=== PATIENT | male | born 1995 | race Hispanic/Latino ===

== ENCOUNTER 2017-10-11 20:43 | Inpatient (IN) | payer BC ==
[2017-10-11 21:35] LABS: Absolute Lymphocytes (CBC) 1.7 K/uL (0.7-4.9); Absolute Monocytes 1.3 K/uL (0.1-1.3); Absolute Neutrophil 11.9 K/uL (1.8-8.0); Basophils % 0.3 % (0-1.3); Eosinophils % 0.7 % (0-4.4); Hematocrit 40.8 % (39.6-49.0); Lymphocytes % 11.3 % (15.3-44.8); MCV 84.9 fL (80-100); MPV 8.7 fL (7.6-11.3); Monocytes % 8.5 % (3.3-12.3)
[2017-10-11 21:42] LABS: Urine Blood TRACE (NEG); Urine Glucose NEGATIVE (NEG); Urine Protein NEGATIVE (NEG); Urine Specific Gravity 1.015 (1.005-1.030); Urine pH 6.5 (5.0-7.0)
[2017-10-11] MEDS ORDERED: FENTANYL CITR 100 MCG/2 ML ONE (21:52)
[2017-10-11] MEDS ORDERED: ONDANSETRON 4 MG/2 ML VIAL ONE (21:52)
[2017-10-11 22:02] LABS: ALT/SGPT 17 U/L (12-78); AST/SGOT 17 U/L (15-37); Albumin 3.9 g/dL (3.4-5.0); Alkaline Phosphatase 63 U/L (45-117); BUN Blood Urea Nitrogen 9 mg/dL (7-18); Bicarbonate 27 mmol/L (21-32); Bilirubin Direct 0.2 mg/dL (0-0.2); Glucose Level 103 mg/dL (74-106); Lipase 121 U/L (73-393); Potassium 3.8 mmol/L (3.5-5.1); Protein, Total 8.2 g/dL (6.4-8.2); Sodium Level 137 mmol/L (136-145)
[2017-10-11] MEDS ORDERED: METRONIDAZOLE 500mg IVPB 500 MG/100 ML BAG IV ONE (22:38)
[2017-10-11] MEDS ORDERED: CIPROFLOXACIN 400mg IV 400 MG/200 ML BAG IV ONE (22:38)
--- NOTE | 2017-10-11 23:19 | EDPHYS ---
Physician Documentation [facility] Name: Bruno Mosqueda III Age: 22 yrs Sex: Male : 1995 Arrival Date: 10/11/2017 Time: 20:44 Bed 28 Private MD: ED Physician Elias Alaniz HPI: 10/11 21:42 This 22 yrs old Male presents to ER via Ambulatory with complaints of jr8 Abdominal Pain. 21:42 The patient presents with abdominal pain in the lower abdomen, in the left lower jr8 quadrant. Onset: The symptoms/episode began/occurred acutely, this morning, today. The symptoms do not radiate. Associated signs and symptoms: none. The symptoms are described as sharp. Modifying factors: The symptoms are alleviated by nothing, the symptoms are aggravated by movement. Severity of pain: At its worst the pain was moderate in the emergency department the pain is unchanged. The patient has not experienced similar symptoms in the past. The patient has not recently seen a physician. Historical: - Allergies: 20:57 No Known Allergies; aj - Home Meds: 20:57 omeprazole 40 mg Oral cpDR 1 cap once daily [Active]; aj - PMHx: 20:57 GERD; aj - PSHx: 20:57 None; aj - Immunization history:: Adult Immunizations up to date. - Social history:: Smoking status: Patient/guardian denies using tobacco. - Ebola Screening: : Patient negative for fever greater than or equal to 101.5 degrees Fahrenheit, and additional compatible Ebola Virus Disease symptoms Patient denies exposure to infectious person Patient denies travel to an Ebola-affected area in the 21 days before illness onset No symptoms or risks identified at this time. ROS: 21:42 Eyes: Negative for injury, pain, redness, and discharge, ENT: Negative for injury, jr8 pain, and discharge, Neck: Negative for injury, pain, and swelling, Cardiovascular: Negative for chest pain, palpitations, and edema, Respiratory: Negative for shortness of breath, cough, wheezing, and pleuritic chest pain, Back: Negative for injury and pain, MS/Extremity: Negative for injury and deformity, Skin: Negative for injury, rash, and discoloration, Neuro: Negative for headache, weakness, numbness, tingling, and seizure. 21:42 Abdomen/GI: Positive for abdominal pain, Negative for nausea, vomiting, and diarrhea, abdominal distension, anorexia, dysphagia, hematemesis, black/tarry stool, rectal pain, rectal bleeding, bowel incontinence, flatulence. Exam: 21:42 Eyes: Pupils equal round and reactive to light, extra-ocular motions intact. Lids and jr8 lashes normal. Conjunctiva and sclera are non-icteric and not injected. Cornea within normal limits. Periorbital areas with no swelling, redness, or edema. ENT: Nares patent. No nasal discharge, no septal abnormalities noted. Tympanic membranes are normal and external auditory canals are clear. Oropharynx with no redness, swelling, or masses, exudates, or evidence of obstruction, uvula midline. Mucous membranes moist. Neck: Trachea midline, no thyromegaly or masses palpated, and no cervical lymphadenopathy. Supple, full range of motion without nuchal rigidity, or vertebral point tenderness. No Meningismus. Cardiovascular: Regular rate and rhythm with a normal S1 and S2. No gallops, murmurs, or rubs. Normal PMI, no JVD. No pulse deficits. Respiratory: Lungs have equal breath sounds bilaterally, clear to auscultation and percussion. No rales, rhonchi or wheezes noted. No increased work of breathing, no retractions or nasal flaring. Back: No spinal tenderness. No costovertebral tenderness. Full range of motion. Skin: Warm, dry with normal turgor. Normal color with no rashes, no lesions, and no evidence of cellulitis. MS/ Extremity: Pulses equal, no cyanosis. Neurovascular intact. Full, normal range of motion. Neuro: Awake and alert, GCS 15, oriented to person, place, time, and situation. Cranial nerves II-XII grossly intact. Motor strength 5/5 in all extremities. Sensory grossly intact. Cerebellar exam normal. Normal gait. 21:42 Abdomen/GI: Inspection: abdomen appears normal, Bowel sounds: active, all quadrants, Palpation: soft, in all quadrants, moderate abdominal tenderness, in the left lower quadrant, mass, is not appreciated, rebound tenderness, is not appreciated, voluntary guarding, is not appreciated, involuntary guarding, is not appreciated, no appreciated organomegaly, Indicators: McBurney's point is not tender, Coronado's sign is negative, Rovsing's sign is negative, Liver: no appreciated palpable abnormalities, tenderness, is not appreciated. Vital Signs: 20:57 BP 146 / 95; Pulse 104; Resp 19; Temp 99.4; Pulse Ox 100% on R/A; Weight 89.81 kg; aj Height 5 ft. 7 in. (170.18 cm); 21:45 BP 159 / 100; Pulse 93; Resp 18; Pulse Ox 100% on R/A; Pain 10/10; mg2 22:54 BP 131 / 78; Pulse 85; Resp 18; Pulse Ox 100% on R/A; Pain 4/10; mg2 23:16 BP 136 / 80; Pulse 93; Resp 18; Pulse Ox 100% on R/A; Pain 2/10; mg2 10/12 00:18 BP 141 / 85; Pulse 90; Resp 18; Pulse Ox 100% on R/A; Pain 0/10; mg2 10/11 20:57 Body Mass Index 31.01 (89.81 kg, 170.18 cm) aj MDM: 10/11 21:09 Patient medically screened. 8 23:15 Data reviewed: vital signs, nurses notes, lab test result(s), radiologic studies, CT jr8 scan, and as a result, I will admit patient. Data interpreted: Pulse oximetry: on room air is 100 %. Interpretation: normal. Counseling: I had a detailed discussion with the patient and/or guardian regarding: the historical points, exam findings, and any diagnostic results supporting the discharge/admit diagnosis, lab results, radiology results, the need for further work-up and treatment in the hospital. Physician consultation: Donn Burroughs MD was called at 23:16, was contacted at 23:16, regarding admission, to the medical/surgical unit. consult, patient's condition, and will see patient. ED course: Dr. Maravilla admitting patient . 10/11 21:09 Order name: Basic Metabolic Panel; Complete Time: 22:13 10/11 21:09 Order name: CBC with Diff; Complete Time: 21:37 8 10/11 21:09 Order name: Creatinine for Radiology; Complete Time: 22:01 10/11 21:09 Order name: Hepatic Function; Complete Time: 22:13 8 10/11 21:09 Order name: Lipase; Complete Time: 22:13 [facility] 10/11 21:34 Order name: Urine Dipstick--Ancillary (enter results); Complete Time: 21:44 rg2 10/11 21:38 Order name: CT Abd/Pelvis - W/Contrast 8 10/11 21:09 Order name: IV Saline Lock; Complete Time: 21:43 8 10/11 21:09 Order name: Labs collected and sent; Complete Time: 21:43 8 10/11 21:09 Order name: Urine Dipstick-Ancillary (obtain specimen); Complete Time: 21:43 10/11 23:20 Order name: CONS Physician Consult EDMS Administered Medications: 21:50 Drug: Zofran 4 mg Route: IVP; Site: left antecubital; mg2 23:15 Follow up: Response: No adverse reaction; Marked relief of symptoms mg2 21:51 Drug: fentaNYL (PF) 50 mcg Route: IVP; Site: left antecubital; mg2 23:15 Follow up: Response: No adverse reaction; Marked relief of symptoms mg2 22:39 Drug: Flagyl 500 mg Volume: 100 ml; Route: IVPB; Rate: 200 ml/hr; Infused Over: 30 mg2 mins; Site: left antecubital; 10/12 00:38 Follow up: Response: No adverse reaction; IV Status: Completed infusion mg2 10/11 23:15 Drug: Cipro 400 mg Volume: 200 ml; Route: IVPB; Infused Over: 60 mins; Site: left [facility] antecubital; 10/12 00:38 Follow up: Response: No adverse reaction; IV Status: Completed infusion mg2 10/11 23:15 Drug: NS 0.9% 1000 ml Route: IV; Rate: 1000 ml; Site: left antecubital; mg2 10/12 00:39 Follow up: Response: No adverse reaction; IV Status: Infusion continued upon admission mg2 10/11 23:21 CANCELLED (Physician Discretion): Dilaudid 0.5 mg IVP once jr8 23:27 Drug: fentaNYL (PF) 50 mcg Route: IVP; Site: left antecubital; mg2 10/12 00:19 Follow up: Response: No adverse reaction; Marked relief of symptoms mg2 00:38 Not Given (patient admitted and bag brought to the floor. ): NS 0.9% 1000 ml IV at 100 mg2 ml/hr continuous Disposition: 00:46 Co-signature as Attending Physician, Elias Alaniz MD. rn Disposition: 10/11/17 23:18 Hospitalization ordered by Kayley Miller for Inpatient Admission. Preliminary diagnosis is Diverticulitis with perforation without abscesss or bleeding . - Bed requested for Telemetry/MedSurg (Inpatient). - Status is Inpatient Admission. mg2 - Condition is Stable. - Problem is new. - Symptoms have improved. UTI on Admission? No Signatures: Dispatcher [employer] EDMS Sharifa Chirinos RN RN kl Myers, Amanda, RN RN aj Nieto, Roman, MD MD rn Roszak, Josh, PA PA jr8 John Goode RN RN mg2 Corrections: (The following items were deleted from the chart) 10/11 23:21 23:20 Dilaudid 0.5 mg IVP once ordered. jr8 jr8 10/12 00:06 10/11 23:18 Hospitalization Ordered by Kayley Miller MD for Inpatient Admission. kl Preliminary diagnosis is Diverticulitis with perforation without abscesss or bleeding . Bed requested for Telemetry/MedSurg (Inpatient). Status is Inpatient Admission. Condition is Stable. Problem is new. Symptoms have improved. UTI on Admission? No. jr8 10/12 00:08 00:06 10/11/2017 23:18 Hospitalization Ordered by Kayley Miller MD for Inpatient kl Admission. Preliminary diagnosis is Diverticulitis with perforation without abscesss or bleeding . Bed requested for Telemetry/MedSurg (Inpatient). Status is Inpatient Admission. Condition is Stable. Problem is new. Symptoms have improved. UTI on Admission? No. kl 00:40 00:08 10/11/2017 23:18 Hospitalization Ordered by Kayley Miller MD for Inpatient mg2 Admission. Preliminary diagnosis is Diverticulitis with perforation without abscesss or bleeding . Bed requested for Telemetry/MedSurg (Inpatient). Status is Inpatient Admission. Condition is Stable. Problem is new. Symptoms have improved. UTI on Admission? No. kl
--- NOTE | 2017-10-11 23:19 | ER ---
Nurse's Notes [facility] Name: Bruno Mosqueda III Age: 22 yrs Sex: Male : 1995 Arrival Date: 10/11/2017 Time: 20:44 Bed 28 Private MD: Diagnosis: Diverticulitis with perforation without abscesss or bleeding Presentation: 10/11 20:56 Presenting complaint: Patient states: Lower abdominal pain that is worse when taking a aj deep breath. Transition of care: patient was not received from another setting of care. Onset of symptoms was October 11, 2017. Risk Assessment: Do you want to hurt yourself or someone else? Patient reports no desire to harm self or others. Initial Sepsis Screen: Does the patient meet any 2 criteria? No. Patient's initial sepsis screen is negative. Does the patient have a suspected source of infection? No. Patient's initial sepsis screen is negative. Care prior to arrival: None. 20:56 Method Of Arrival: Ambulatory 20:56 Acuity: DELMAR 3 aj Triage Assessment: 20:57 General: Appears in no apparent distress. comfortable, Behavior is calm, cooperative, aj appropriate for age. Pain: Complains of pain in right lower quadrant and left lower quadrant. Neuro: Level of Consciousness is awake, alert, obeys commands, Oriented to person, place, time, situation, Appropriate for age. Respiratory: Airway is patent Respiratory effort is even, unlabored, Respiratory pattern is regular, symmetrical. GI: Reports lower abdominal pain, nausea. Derm: Skin is intact, is healthy with good turgor, Skin is pink, warm \T\ dry. normal. Historical: - Allergies: 20:57 No Known Allergies; aj - Home Meds: 20:57 omeprazole 40 mg Oral cpDR 1 cap once daily [Active]; aj - PMHx: 20:57 GERD; aj - PSHx: 20:57 None; aj - Immunization history:: Adult Immunizations up to date. - Social history:: Smoking status: Patient/guardian denies using tobacco. - Ebola Screening: : Patient negative for fever greater than or equal to 101.5 degrees Fahrenheit, and additional compatible Ebola Virus Disease symptoms Patient denies exposure to infectious person Patient denies travel to an Ebola-affected area in the 21 days before illness onset No symptoms or risks identified at this time. Screenin:43 Abuse screen: Denies threats or abuse. Denies injuries from another. Nutritional mg2 screening: No deficits noted. Tuberculosis screening: No symptoms or risk factors identified. Fall Risk IV access (20 points). Assessment: 21:43 General: Appears in no apparent distress. comfortable, Behavior is calm, cooperative. mg2 Pain: Complains of pain in left lower quadrant and right lower quadrant Pain does not radiate. Pain currently is 10 out of 10 on a pain scale. Quality of pain is described as aching, Pain began gradually, Is intermittent. Neuro: Level of Consciousness is awake, alert, obeys commands, Oriented to person, place, time, situation. Cardiovascular: Capillary refill < 3 seconds Patient's skin is warm and dry. Respiratory: Airway is patent Respiratory effort is even, unlabored, Respiratory pattern is regular, symmetrical. GI: Abdomen is flat, Bowel sounds present X 4 quads. Abd is soft and non tender. : Urine is clear. EENT: No signs and/or symptoms were reported regarding the EENT system. Derm: Skin is intact, Skin is pink, warm \T\ dry. normal. Musculoskeletal: Circulation, motion, and sensation intact. 23:32 Reassessment: Patient appears in no apparent distress at this time. Patient and/or mg2 family updated on plan of care and expected duration. Pain level reassessed. Patient is alert, oriented x 3, equal unlabored respirations, skin warm/dry/pink. Vital Signs: 20:57 BP 146 / 95; Pulse 104; Resp 19; Temp 99.4; Pulse Ox 100% on R/A; Weight 89.81 kg; aj Height 5 ft. 7 in. (170.18 cm); 21:45 BP 159 / 100; Pulse 93; Resp 18; Pulse Ox 100% on R/A; Pain 10/10; mg2 22:54 BP 131 / 78; Pulse 85; Resp 18; Pulse Ox 100% on R/A; Pain 4/10; mg2 23:16 BP 136 / 80; Pulse 93; Resp 18; Pulse Ox 100% on R/A; Pain 2/10; mg2 10/12 00:18 BP 141 / 85; Pulse 90; Resp 18; Pulse Ox 100% on R/A; Pain 0/10; mg2 10/11 20:57 Body Mass Index 31.01 (89.81 kg, 170.18 cm) ED Course: 10/11 20:44 Patient arrived in ED. ds1 20:56 Triage completed. aj 20:57 Arm band placed on right wrist. Patient placed in an exam room, Patient notified of wait time. 21:09 Frank Ceballos PA is PHCP. jr8 21:09 Elias Alaniz MD is Attending Physician. jr8 21:17 John Goode, RN is Primary Nurse. mg2 21:43 No provider procedures requiring assistance completed. Inserted saline lock: 20 gauge mg2 in left antecubital area, using aseptic technique. Blood collected. 21:44 Radiology exam delayed due to lab results not completed at this time. (BUN/Creatinine). sj 21:45 Patient has correct armband on for positive identification. Call light in reach. Pulse mg2 ox on. NIBP on. Door closed. Warm blanket given. 22:[address] via wheelchair. sj 22:10 CT Abd/Pelvis - W/Contrast In Process Unspecified. EDMS 22:11 CT completed. Patient tolerated procedure well. Patient moved back from CT. nj 23:16 Kayley Miller MD is Hospitalizing Provider. jr8 10/12 00:17 Patient admitted, IV remains in place. mg2 Administered Medications: 10/11 21:50 Drug: Zofran 4 mg Route: IVP; Site: left antecubital; mg2 23:15 Follow up: Response: No adverse reaction; Marked relief of symptoms mg2 21:51 Drug: fentaNYL (PF) 50 mcg Route: IVP; Site: left antecubital; mg2 23:15 Follow up: Response: No adverse reaction; Marked relief of symptoms mg2 22:39 Drug: Flagyl 500 mg Volume: 100 ml; Route: IVPB; Rate: 200 ml/hr; Infused Over: 30 mg2 mins; Site: left antecubital; 10/12 00:38 Follow up: Response: No adverse reaction; IV Status: Completed infusion mg2 10/11 23:15 Drug: Cipro 400 mg Volume: 200 ml; Route: IVPB; Infused Over: 60 mins; Site: left mg2 antecubital; 10/12 00:38 Follow up: Response: No adverse reaction; IV Status: Completed infusion mg2 10/11 23:15 Drug: NS 0.9% 1000 ml Route: IV; Rate: 1000 ml; Site: left antecubital; mg2 10/12 00:39 Follow up: Response: No adverse reaction; IV Status: Infusion continued upon admission mg2 10/11 23:21 CANCELLED (Physician Discretion): Dilaudid 0.5 mg IVP once jr8 23:27 Drug: fentaNYL (PF) 50 mcg Route: IVP; Site: left antecubital; mg2 10/12 00:19 Follow up: Response: No adverse reaction; Marked relief of symptoms mg2 00:38 Not Given (patient admitted and bag brought to the floor. ): NS 0.9% 1000 ml IV at 100 mg2 ml/hr continuous Outcome: 10/11 23:18 Decision to Hospitalize by Provider. jr8 10/12 00:17 Admitted to Tele accompanied by tech, via wheelchair, room 422, with chart, Report mg2 called to VALERIE Phan Condition: stable Instructed on the need for admit, Demonstrated understanding of instructions. 00:40 Patient left the ED. mg2 Signatures: Dispatcher [employer] EDKathrin Hamm, VALERIE RN Alyx Goodman Demi ds1 Frank Ceballos PA PA jr8 Caden Balderrama Michele, RN RN mg2
[2017-10-11] MEDS ORDERED: NA CHLORIDE 0.9% 1,000 ML ONE (23:25)
--- NOTE | 2017-10-11 23:59 | P.HP ---
Certification for Inpatient Patient admitted to: Inpatient With expected LOS: >2 Midnights Practitioner: I am a practitioner with admitting privileges, knowledge of patient current condition, hospital course, and medical plan of care. Services: Services provided to patient in accordance with Admission requirements found in Title 42 Section 412.3 of the Code of Federal Regulations Patient History Date of Service: 10/11/17 Reason for admission: acute diverticulitis History of Present Illness: Mr Mosqueda is a 22 years old male who start early this morning with abdominal pain. The pain was localized on left lower quadrant. It was constant, 10/10 of intensity, getting worse with movements or palpation. He denied nausea, vomiting or diarrhea. He has had no fever or chills at home. At arrival the patient temp was 99.4F, Lab work remarkable for leukocytosis 15.0K, CT abd/ pelvis reported acute sigmoid diverticulitis with microperforation. At my encounter, the patient was in non-distress. Allergies No Known Allergies Allergy (Unverified 05/23/16 22:47) Home medications list reviewed: Yes - Past Medical/Surgical History Has patient received pneumonia vaccine in the past: Yes Past Medical History: Reviewed- Non-Contributory Past Surgical History: Reviewed- Non-Contributory - Family History Family History: Reviewed- Non-Contributory - Social History Smoking Status: Never smoker Alcohol use: No CD- Drugs: No Place of Residence: Home Review of Systems 10-point ROS is otherwise unremarkable Physical Examination - Physical Exam General: Alert, In no apparent distress HEENT: Atraumatic, PERRLA, Mucous membr. moist/pink, EOMI, Sclerae nonicteric Neck: Supple, 2+ carotid pulse no bruit, No LAD, Without JVD or thyroid abnormality Respiratory: Clear to auscultation bilaterally, Normal air movement Cardiovascular: Regular rate/rhythm, Normal S1 S2 Gastrointestinal: Normal bowel sounds, Tenderness (LLQ) Musculoskeletal: No tenderness Integumentary: No rashes Neurological: Normal speech, Normal strength at 5/5 x4 extr, Normal tone, Normal affect Lymphatics: No axilla or inguinal lymphadenopathy - Studies Laboratory Data (last 24 hrs) 10/11/17 21:20: Creatinine 1.00 10/11/17 21:20: WBC 15.0 H, Hgb 14.4, Hct 40.8, Plt Count 234 10/11/17 21:20: Sodium 137, Potassium 3.8, BUN 9, Creatinine 1.00, Glucose 103, Total Bilirubin 1.0, AST 17, ALT 17, Alkaline Phosphatase 63, Lipase 121 Assessment and Plan - Problems (Diagnosis) (1) Acute diverticulitis Current Visit: Yes Status: Acute - Plan The patient will be admitted to the hospital due to acute sigmoid diverticulitis , complicated with microperforation. Will start emipiric treatment with Ciprofloxacin and Flagyl, keep NPO, consult surgery team for evaluation and recommendations. - Advance Directives Does patient have a Living Will: No Does patient have a Durable POA for Healthcare: No - Code Status/Comfort Care Code Status Assessed: Yes Code Status: Full Code
[2017-10-12] MEDS ORDERED: NA CHLORIDE 0.9% 1,000 ML ONE (00:07)
[2017-10-12] MEDS ORDERED: ONDANSETRON 4 MG/2 ML VIAL IV PRN (00:30)
[2017-10-12] MEDS ORDERED: ACETAMINOPHEN 500 MG TAB PO PRN (00:30)
[2017-10-12] MEDS: NA CHLORIDE 0.9% 1,000 ML IV SCH ×3 (01:21→20:30)
[2017-10-12] MEDS: KETOROLAC 30 MG/ML INJ IV PRN ×4 (01:33→23:39)
[2017-10-12 04:40] LABS: Absolute Lymphocytes (CBC) 1.6 K/uL (0.7-4.9); Absolute Monocytes 1.1 K/uL (0.1-1.3); Absolute Neutrophil 11.2 K/uL (1.8-8.0); Basophils % 1.7 % (0-1.3); Hematocrit 36.4 % (39.6-49.0); Lymphocytes % 11.2 % (15.3-44.8); MCH 30.3 pg (27.0-35.0); MCV 85.4 fL (80-100); MPV 8.8 fL (7.6-11.3); RBC Red Blood Cell Count 4.26 M/uL (4.33-5.43)
[2017-10-12 04:50] LABS: BUN Blood Urea Nitrogen 9 mg/dL (7-18); Bicarbonate 29 mmol/L (21-32); Glucose Level 109 mg/dL (74-106); Potassium 4.1 mmol/L (3.5-5.1); Sodium Level 138 mmol/L (136-145)
[2017-10-12] MEDS: METRONIDAZOLE 500mg IVPB 500 MG/100 ML BAG IV SCH ×3 (05:26→21:33)
--- NOTE | 2017-10-12 08:21 | RAD REPORT ---
EXAM DESCRIPTION: CTAbdomen Pelvis W Contrast - 10/12/2017 2:24 am CLINICAL HISTORY: Abdominal pain. iv only;Abd pain;Fever COMPARISON: No comparisons TECHNIQUE: Biphasic CT imaging of the abdomen and pelvis was performed with 100 ml non-ionic IV cont rast. All CT scans are performed using dose optimization technique as appropriate and may include automated exposure control or mA/KV adjustment according to patient size. FINDINGS: The lung bases are clear. The liver, spleen, pancreas, adrenal glands and kidneys are within normal limits. No bowel obstruction, free air, free fluid or abscess. Inflammatory changes are seen surrounding the sigmoid colon where several diverticula are noted. This is most compatible with mild acute diverticul itis. Tiny extraluminal air bubbles seen in the region are noted. The appendix is normal. No evidenc e of significant lymphadenopathy. No suspicious bony findings. IMPRESSION: Mild acute sigmoid diverticulitis is suspected without abscess.
[2017-10-12] MEDS ORDERED: SODIUM CHLORIDE 0.9% 10ML INJ IV PRN (08:52)
--- NOTE | 2017-10-12 08:55 | P.PN ---
Subjective Date of Service: 10/12/17 Primary Care Provider: None; GI-Dr. Howell Chief Complaint: acute diverticulitis Subjective: Other (Patient still with pain but improved.) Physical Examination - Vital Signs Temperature: 98.3 F Blood Pressure: 104/51 Pulse: 83 Respirations: 18 Pulse Ox (%): 100 - Physical Exam General: Alert, In no apparent distress, Oriented x3, Cooperative HEENT: Atraumatic Neck: Supple Respiratory: Clear to auscultation bilaterally, Normal air movement Cardiovascular: Normal pulses, Regular rate/rhythm Gastrointestinal: Hypoactive (Throughout), Non-distended, No masses, No rebound , No guarding, Tenderness (Slight tenderness to the left lower quadrant) Musculoskeletal: No erythema, No tenderness, No warmth Integumentary: No tenderness/swelling, No erythema, No warmth, No cyanosis Neurological: Normal speech, Normal strength at 5/5 x4 extr, Normal tone, Normal affect - Studies Laboratory Data (last 24 hrs) 10/11/17 21:20: Creatinine 1.00 10/11/17 21:20: WBC 15.0 H, Hgb 14.4, Hct 40.8, Plt Count 234 10/11/17 21:20: Sodium 137, Potassium 3.8, BUN 9, Creatinine 1.00, Glucose 103, Total Bilirubin 1.0, AST 17, ALT 17, Alkaline Phosphatase 63, Lipase 121 Medications List Reviewed: Yes Assessment & Plan Discharge Plan: Home Plan to discharge in: 72 Hours Physician Review Additional Text: Impression: Abdominal pain secondary to acute sigmoid diverticulitis with micro perforation. GERD Plan: Will continue with IV antibiotic therapy and IV fluids. Surgery consulted to further assess. If his condition worsens patient may require surgical intervention. Patient is responding to therapy well. Patient continues to be NPO at this time. Once improve can advance his diet slowly. Patient with history of GERD in has seen GI in the past with prior EGD. Will continue with IV Protonix at this time. Will provide DVT prophylaxis. Will continue with IV pain medication at this time. Will continue monitor to electrolytes closely. Encourage ambulation. Time Spent Managing Pts Care (In Minutes): 55
[2017-10-12] MEDS: ENOXAPARIN 40 MG/0.4 ML SQ SCH (09:49)
[2017-10-12] MEDS: CIPROFLOXACIN 400mg IV 400 MG/200 ML BAG IV SCH ×2 (09:49→20:33)
[2017-10-12] MEDS: PANTOPRAZOLE 40 MG INJ IVP SCH (09:49)
--- NOTE | 2017-10-12 22:28 | CON ---
Date of Consultation: 10/12/2017 Diagnosis: Acute diverticulitis with microperforation. History Of Present Illness: This is the case of a 22-year-old patient who comes to us with left lowe r quadrant tenderness since the day before the admission, associated with nausea. No vomiting. No d iarrhea. He denies any dysuria, hematuria, hematochezia, or melena. Denies any recent traveling out of the country. Denies any family members sick at home. Denies any trauma. Allergies: NONE. Medical Problems: None. Family History: Noncontributory. Social History: He does not smoke. He does not drink alcohol. Past Surgical History: None. Review of Systems: Ten points otherwise unremarkable. Physical Examination: General: He is awake and alert. HEENT: Pupils are equal and reactive, anicteric. Neck: Supple. Chest: Clear. Heart: S1, S2. Abdomen: Soft and depressible. There is left lower quadrant tenderness. Rectal: Deferred. Extremities: Good capillary refill. Imaging: CAT scan of abdomen and pelvis is interpreted by Dr. Buckley as acute diverticulitis with susp ected what he believed could be a microperforation. No free air under the diaphragm. Assessment: This is a 22-year-old patient with diverticulitis as a differential diagnosis because th e patient has sigmoid colitis in that area we believe could be extraluminal air, then we h ave to treat it as contained perforation. There is no free air in the abdomen. We are going to give him bowel rest, IV hydration, IV antibiotics. We do not feed him yet. He understands as it was exp lained to him the options or electively as an emergent laparotomy, possible resection, pos sible ostomy with benefits, alternatives, and risks including, but not limited to infection, bleeding , damage to adjacent structures, anesthesia complications, myocardial infarction, and even . We are going to continue conservative treatment as we can. We are going to repeat the abdominal x-ray in the morning. MECHELLE/TY Voice ID: [id number] Report ID: [id number]
[2017-10-13] MEDS: NA CHLORIDE 0.9% 1,000 ML IV SCH ×3 (04:15→16:30)
[2017-10-13 04:46] LABS: Absolute Lymphocytes (CBC) 2.2 K/uL (0.7-4.9); Absolute Monocytes 1.1 K/uL (0.1-1.3); Absolute Neutrophil 8.4 K/uL (1.8-8.0); Basophils % 0.4 % (0-1.3); Eosinophils % 1.3 % (0-4.4); Hematocrit 35.6 % (39.6-49.0); Lymphocytes % 18.3 % (15.3-44.8); MCV 84.5 fL (80-100); RBC Red Blood Cell Count 4.21 M/uL (4.33-5.43)
[2017-10-13 05:01] LABS: BUN Blood Urea Nitrogen 9 mg/dL (7-18); Bicarbonate 26 mmol/L (21-32); Glucose Level 93 mg/dL (74-106); Potassium 4.2 mmol/L (3.5-5.1); Sodium Level 139 mmol/L (136-145)
[2017-10-13] MEDS: METRONIDAZOLE 500mg IVPB 500 MG/100 ML BAG IV SCH ×3 (05:34→21:35)
[2017-10-13] MEDS: KETOROLAC 30 MG/ML INJ IV PRN ×2 (07:25→15:39)
--- NOTE | 2017-10-13 08:06 | RAD REPORT ---
EXAM DESCRIPTION: RAD - Abdomen W Erect - 10/13/2017 6:38 am CLINICAL HISTORY: Abdominal pain FINDINGS: The bowel gas pattern is unremarkable Free air is not seen beneath the diaphragm.
[2017-10-13] MEDS: ENOXAPARIN 40 MG/0.4 ML SQ SCH (10:06)
[2017-10-13] MEDS: CIPROFLOXACIN 400mg IV 400 MG/200 ML BAG IV SCH ×2 (10:06→21:34)
[2017-10-13] MEDS: PANTOPRAZOLE 40 MG INJ IVP SCH (10:06)
--- NOTE | 2017-10-13 13:43 | PN ---
Date of Progress Note: 10/13/2017 Diagnosis: Complicated diverticulitis with microperforation. The patient is doing better. Review of Systems: Constitutional: Denies any fever or chills. Respiratory: Denies any shortness of breath. Gastrointestinal: Denies any melena or hematochezia or nausea or vomiting. Physical Examination: General: The patient is awake and alert. No distress. Abdomen: Soft and depressible. Mild left lower quadrant tenderness with no peritonitis. Extremities: Good capillary refill. Laboratory Data: Blood work shows a WBC count of 11.8. Abdominal x-rays show no free air. Assessment: A 22-year-old patient with a complicated diverticulitis. We can continue bowel rest unt il tomorrow. If clinically he improves, we might attempt to give him some liquid diet. We have to r emember this patient to have a microperforation present with a chance of biopsies. MECHELLE/TY Voice ID: [id number] Report ID: [id number]
--- NOTE | 2017-10-13 14:45 | P.PN ---
Subjective Date of Service: 10/13/17 Primary Care Provider: None; GI-Dr. Howell Chief Complaint: acute diverticulitis Subjective: Improving (Less pain noted. Patient is passing gas.) Physical Examination - Vital Signs Temperature: 98.7 F Blood Pressure: 144/66 Pulse: 66 Respirations: 17 Pulse Ox (%): 98 - Physical Exam General: Alert, In no apparent distress, Oriented x3, Cooperative HEENT: Atraumatic Neck: Supple Respiratory: Clear to auscultation bilaterally, Normal air movement Cardiovascular: Normal pulses, Regular rate/rhythm Gastrointestinal: Normal bowel sounds, Soft and benign, Non-distended, No masses , No rebound, No guarding, Tenderness (Less pain noted) Musculoskeletal: No tenderness, No warmth Integumentary: No tenderness/swelling, No erythema, No warmth, No cyanosis Neurological: Normal speech, Normal strength at 5/5 x4 extr, Normal tone, Normal affect - Studies Medications List Reviewed: Yes Assessment & Plan Physician Review Additional Text: Impression: Abdominal pain secondary to acute sigmoid diverticulitis with micro perforation. GERD Plan: Patient remains NPO. X-ray shows no free air. Will continue with bowel rest as recommended by surgery. If improved by tomorrow then may consider starting clear liquids. Will need to advance slowly. Continue current IV antibiotic therapy and fluids. Continue with PPI. Patient on DVT prophylaxis.
[2017-10-14] MEDS: NA CHLORIDE 0.9% 1,000 ML IV SCH ×3 (03:45→20:39)
[2017-10-14 05:44] LABS: Absolute Lymphocytes (CBC) 1.7 K/uL (0.7-4.9); Absolute Monocytes 0.7 K/uL (0.1-1.3); Absolute Neutrophil 6.3 K/uL (1.8-8.0); Basophils % 0.6 % (0-1.3); Eosinophils % 2.6 % (0-4.4); Hematocrit 35.1 % (39.6-49.0); Lymphocytes % 18.7 % (15.3-44.8); MCH 30.4 pg (27.0-35.0); MCV 85.3 fL (80-100); Monocytes % 8.3 % (3.3-12.3); RBC Red Blood Cell Count 4.12 M/uL (4.33-5.43)
[2017-10-14 05:56] LABS: BUN Blood Urea Nitrogen 11 mg/dL (7-18); Bicarbonate 26 mmol/L (21-32); Glucose Level 81 mg/dL (74-106); Potassium 4.3 mmol/L (3.5-5.1); Sodium Level 140 mmol/L (136-145)
[2017-10-14] MEDS: METRONIDAZOLE 500mg IVPB 500 MG/100 ML BAG IV SCH ×3 (05:58→21:54)
[2017-10-14] MEDS: ENOXAPARIN 40 MG/0.4 ML SQ SCH (08:49)
[2017-10-14] MEDS: PANTOPRAZOLE 40 MG INJ IVP SCH (08:49)
[2017-10-14] MEDS: CIPROFLOXACIN 400mg IV 400 MG/200 ML BAG IV SCH ×2 (08:49→20:38)
[2017-10-14] MEDS: KETOROLAC 30 MG/ML INJ IV PRN ×2 (08:58→21:53)
--- NOTE | 2017-10-14 11:29 | P.PN ---
Subjective Date of Service: 10/14/17 Primary Care Provider: None; GI-Dr. Howell Chief Complaint: acute diverticulitis Subjective: Other (Patient is slowly improving. Patient is passing gas. Pain improved) Physical Examination - Vital Signs Temperature: 97.6 F Blood Pressure: 121/73 Pulse: 91 Respirations: 17 Pulse Ox (%): 100 - Physical Exam General: Alert, In no apparent distress, Oriented x3, Cooperative HEENT: Atraumatic Neck: Supple Respiratory: Clear to auscultation bilaterally, Normal air movement Cardiovascular: Normal pulses, Regular rate/rhythm Gastrointestinal: Normal bowel sounds, Soft and benign, Non-distended, No masses , No rebound, No guarding, Tenderness (Pain to the left lower quadrant improved) Musculoskeletal: No erythema, No tenderness, No warmth Integumentary: No tenderness/swelling, No erythema, No warmth, No cyanosis Neurological: Normal speech, Normal strength at 5/5 x4 extr, Normal tone - Studies Medications List Reviewed: Yes Assessment & Plan Physician Review Additional Text: Impression: Abdominal pain secondary to acute sigmoid diverticulitis with micro perforation. GERD Plan: Patient remains NPO. X-ray yesterday shows no free air under diaphragm. Pain to the left lower quadrant improved. Continue with bowel rest. Await further recommendations from surgery to see if the patient can start clear liquids. Patient continues to ambulate. Patient on DVT prophylaxis. Time Spent Managing Pts Care (In Minutes): 55
[2017-10-15] MEDS: METRONIDAZOLE 500mg IVPB 500 MG/100 ML BAG IV SCH ×2 (05:01→14:15)
[2017-10-15 06:49] LABS: BUN Blood Urea Nitrogen 8 mg/dL (7-18); Bicarbonate 25 mmol/L (21-32); Glucose Level 83 mg/dL (74-106); Magnesium 1.9 mg/dL (1.8-2.4); Sodium Level 138 mmol/L (136-145)
[2017-10-15 07:48] LABS: Absolute Lymphocytes (CBC) 1.7 K/uL (0.7-4.9); Absolute Monocytes 0.7 K/uL (0.1-1.3); Absolute Neutrophil 5.3 K/uL (1.8-8.0); Basophils % 0.8 % (0-1.3); Eosinophils % 2.9 % (0-4.4); Hematocrit 34.5 % (39.6-49.0); Lymphocytes % 20.9 % (15.3-44.8); MCH 30.4 pg (27.0-35.0); MCV 84.8 fL (80-100); Monocytes % 9.1 % (3.3-12.3); RBC Red Blood Cell Count 4.07 M/uL (4.33-5.43)
[2017-10-15] MEDS: PANTOPRAZOLE 40 MG INJ IVP SCH (09:25)
[2017-10-15] MEDS: CIPROFLOXACIN 400mg IV 400 MG/200 ML BAG IV SCH (09:25)
[2017-10-15] MEDS: ENOXAPARIN 40 MG/0.4 ML SQ SCH (09:25)
--- NOTE | 2017-10-15 09:27 | P.PN ---
Subjective Date of Service: 10/15/17 Primary Care Provider: None; GI-Dr. Howell Chief Complaint: acute diverticulitis Subjective: Improving Physical Examination - Vital Signs Temperature: 98.2 F Blood Pressure: 151/99 Pulse: 65 Respirations: 16 Pulse Ox (%): 100 - Physical Exam General: Alert, In no apparent distress, Oriented x3, Cooperative HEENT: Atraumatic, Mucous membr. moist/pink Neck: Supple, No Thyromegaly Respiratory: Clear to auscultation bilaterally, Normal air movement Cardiovascular: Normal pulses, Regular rate/rhythm Gastrointestinal: Normal bowel sounds, Soft and benign, Non-distended, No tenderness, No masses, No rebound, No guarding Musculoskeletal: No erythema, No tenderness, No warmth Integumentary: No tenderness/swelling, No erythema, No warmth, No cyanosis Neurological: Normal speech, Normal strength at 5/5 x4 extr, Normal tone, Normal affect - Studies Medications List Reviewed: Yes Assessment & Plan Discharge Plan: Home Plan to discharge in: 24 Hours Physician Review Additional Text: Impression: Abdominal pain secondary to acute sigmoid diverticulitis with micro perforation. GERD Plan: Patient was started on clear liquids yesterday and advance to full liquid. Patient tolerated this well. Case discussed at length with surgery yesterday. Will provide soft diet this morning as the patient is without any significant pain. He is passing gas. If the patient tolerates his diet today. Will consider discharge later today. Patient will need Cipro/Flagyl for 10 more days. Patient will also require GI follow up with colonoscopy in 4-6 weeks. Patient has seen GI in the past. Will continue with PPI for his GERD. Will reassess this afternoon. Time Spent Managing Pts Care (In Minutes): 55
--- NOTE | 2017-10-15 09:44 | P.DS ---
Admission Date: 10/11/17 Discharge Date: 10/15/17 Primary Care Provider: None; GI-Dr. Howell Disposition: ROUTINE DISCHARGE Discharge Condition: GOOD Reason for Admission: acute diverticulitis Consultations: Surgery-Dr. Burroughs Procedures: CT scan: COMPARISON: No comparisons TECHNIQUE: Biphasic CT imaging of the abdomen and pelvis was performed with 100 ml non-ionic IV contrast. All CT scans are performed using dose optimization technique as appropriate and may include automated exposure control or mA/KV adjustment according to patient size. FINDINGS: The lung bases are clear. The liver, spleen, pancreas, adrenal glands and kidneys are within normal limits. No bowel obstruction, free air, free fluid or abscess. Inflammatory changes are seen surrounding the sigmoid colon where several diverticula are noted. This is most compatible with mild acute diverticulitis. Tiny extraluminal air bubbles seen in the region are noted. The appendix is normal. No evidence of significant lymphadenopathy. No suspicious bony findings. IMPRESSION: Mild acute sigmoid diverticulitis is suspected without abscess. Medical problem list: Abdominal pain secondary to acute sigmoid diverticulitis with micro perforation GERD Brief History of Present Illness: 22-year-old male presented emergency room with abdominal pain. Patient with history of GERD. Patient was evaluated in the emergency room. CT scan showed acute sigmoid diverticulitis with micro perforation. The patient was admitted for treatment. Hospital Course: Patient presented with abdominal pain. Patient found to have acute sigmoid diverticulitis with micro perforation. The patient was admitted for IV fluids, pain control and antibiotic therapy. Patient was given bowel rest. Surgery was consulted. Patient did not require any surgical intervention. Repeat abdominal x-ray showed no free air in the abdomen. His diet was slowly advanced. Patient tolerated this well. At discharge he is without any significant abdominal pain. At discharge he will continue with Cipro 500 mg 1 pill twice daily and Flagyl 500 mg 1 pill 3 times a day for 10 days. At discharge patient will continue with a low residue diet. Recommendation is for the patient follow up with GI in 1-2 weeks to follow up this hospitalization. Patient will require colonoscopy in 4-6 weeks to further address. Education on diverticulitis will be provided. Patient has history of GERD. Patient may continue with medication-Nexium 40 mg daily. Vital Signs/Physical Exam: Temp Pulse Resp BP Pulse Ox 98.2 F 65 16 151/99 H 100 10/15/17 09:27 10/15/17 09:27 10/15/17 09:27 10/15/17 09:27 10/15/17 09:27 General: Alert, In no apparent distress, Oriented x3, Cooperative HEENT: Atraumatic, Mucous membr. moist/pink Neck: Supple, No Thyromegaly Respiratory: Clear to auscultation bilaterally, Normal air movement Cardiovascular: Normal pulses, Regular rate/rhythm Gastrointestinal: Normal bowel sounds, Soft and benign, Non-distended, No tenderness, No masses, No rebound, No guarding Musculoskeletal: No erythema, No tenderness, No warmth Integumentary: No tenderness/swelling, No erythema, No warmth, No cyanosis Neurological: Normal speech, Normal strength at 5/5 x4 extr, Normal tone, Normal affect Laboratory Data at Discharge: WBC 8.0 K/uL (4.3-10.9) 10/15/17 05:10 Hgb 12.4 g/dL (13.6-17.9) L 10/15/17 05:10 Hct 34.5 % (39.6-49.0) L 10/15/17 05:10 Plt Count 250 K/uL (152-406) 10/15/17 05:10 Sodium 138 mmol/L (136-145) 10/15/17 05:10 Potassium 4.0 mmol/L (3.5-5.1) 10/15/17 05:10 BUN 8 mg/dL (7-18) 10/15/17 05:10 Creatinine 0.70 mg/dL (0.55-1.3) 10/15/17 05:10 Glucose 83 mg/dL (74-106) 10/15/17 05:10 Magnesium 1.9 mg/dL (1.8-2.4) 10/15/17 05:10 Total Bilirubin 1.0 mg/dL (0.2-1.0) 10/11/17 21:20 AST 17 U/L (15-37) 10/11/17 21:20 ALT 17 U/L (12-78) 10/11/17 21:20 Alkaline Phosphatase 63 U/L (45-117) 10/11/17 21:20 Lipase 121 U/L (73-393) 10/11/17 21:20 Home Medications: Esomeprazole Magnesium 40 mg PO DAILY 10/12/17 Ciprofloxacin HCl [Cipro 500 MG Tablet] 500 mg PO BID #20 tab 10/15/17 metroNIDAZOLE [Flagyl] 500 mg PO Q8H #30 tablet 10/15/17 New Medications: Ciprofloxacin HCl [Cipro 500 MG Tablet] 500 mg PO BID #20 tab metroNIDAZOLE [Flagyl] 500 mg PO Q8H #30 tablet Patient Discharge Instructions: 1. Patient will need to follow up with a PCP to establish care and to follow up this hospitalization. 2. Patient presented with abdominal pain. Patient found to have acute sigmoid diverticulitis with micro perforation. The patient was admitted for IV fluids, pain control and antibiotic therapy. Patient was given bowel rest. Surgery was consulted. Patient did not require any surgical intervention. Repeat abdominal x-ray showed no free air in the abdomen. His diet was slowly advanced. Patient tolerated this well. At discharge he is without any significant abdominal pain. At discharge he will continue with Cipro 500 mg 1 pill twice daily and Flagyl 500 mg 1 pill 3 times a day for 10 days. At discharge patient will continue with a low residue diet. Recommendation is for the patient follow up with GI in 1-2 weeks to follow up this hospitalization. Patient will require colonoscopy in 4-6 weeks to further address. He is to monitor for any further pain. If worse patient will need to return to the ER for evaluation. Education on diverticulitis will be provided. 3. Patient has history of GERD. Patient may continue with medication-Nexium 40 mg daily. Diet: Low residue diet Activity: Ad lief Time spent managing pt's care (in minutes): 55
[2017-10-15] MEDS: NA CHLORIDE 0.9% 1,000 ML IV SCH (09:50)
[2017-10-15] MEDS: KETOROLAC 30 MG/ML INJ IV PRN (12:19)
--- NOTE | 2017-10-18 08:27 | P.PN ---
Subjective Date of Service: 10/15/17 Chief Complaint: acute diverticulitis with microperforation Subjective: Tolerating diet, Ambulating, Improving Review of Systems 10-point ROS is otherwise unremarkable Physical Examination - Vital Signs Temperature: 98.8 F Blood Pressure: 140/86 Pulse: 70 Respirations: 16 Pulse Ox (%): 100 - Physical Exam General: Alert, In no apparent distress, Oriented x3, Cooperative HEENT: PERRLA, EOMI Respiratory: Normal air movement Cardiovascular: No edema, Normal pulses Gastrointestinal: Soft and benign, No ascites, No tenderness, No masses, No rebound, No guarding Neurological: Normal speech, Cranial nerves 3-12 intact - Studies Medications List Reviewed: Yes Assessment And Plan - Plan diet po abx f/u with gastroenterogyst and me in one week diverticular diet explained Discharge Plan: Home Physician Review Additional Text: Impression: Abdominal pain secondary to acute sigmoid diverticulitis with micro perforation. GERD Plan: Patient was started on clear liquids yesterday and advance to full liquid. Patient tolerated this well. Case discussed at length with surgery yesterday. Will provide soft diet this morning as the patient is without any significant pain. He is passing gas. If the patient tolerates his diet today. Will consider discharge later today. Patient will need Cipro/Flagyl for 10 more days. Patient will also require GI follow up with colonoscopy in 4-6 weeks. Patient has seen GI in the past. Will continue with PPI for his GERD. Will reassess this afternoon.
== END 2017-10-15 18:14 | disposition home or self-care (01) | DRG 392 ==
LOC: ER 20:43 → ERHOLD 23:19 → 4TH 10-12 00:17
PROVIDERS: ADMIT Internal Medicine; ATTEND Family Medicine
DX: K57.20 Diverticulitis of large intestine with perforation and abscess without bleeding (principal); K21.9 Gastro-esophageal reflux disease without esophagitis
CPT/HCPCS: 36415; 74019; 74177; 80048; 80076; 81003; 83690; 83735; 85025; 96365; 96375; 99285; C9113; J0744; J1650; J2405; J3010; J7030; Q9967

== ENCOUNTER 2018-08-19 14:57 | Emergency (ER) | payer BC, OTHER, SELFPAY ==
--- OUTSIDE RECORDS SUMMARY | 2018-08-19 15:00 | XMS REPORT | Clinical Summary ---
:1995 Author Organization [facility] Address [address] [place] [address] Care Team Providers Name Role Phone Asked, No Pcp Primary Care Provider Unavailable Allergies Active Allergy Reactions Severity Noted Date Comments Sulfamethoxazole Rash Low 12/18/2017 Medications Medication Sig Dispensed Refills Start Date End Date Status esomeprazole Take 40 mg by 0 Active (NexIUM) 40 MG mouth daily capsule before breakfast. L. rhamnosus Take 1 capsule by 0 Active GG/inulin mouth every (CULTURELLE morning. PROBIOTICS ORAL) SUPREP BOWEL PREP Take 2 Bottles 354 mL 0 12/15/2017 12/15/2017 KIT 17.5-3.13-1.6 (354 mL total) by gram recon soln mouth once for 1 dose. Take as directed by physician traMADol (ULTRAM) 50 Take 1 tablet (50 30 tablet 0 12/22/2017 12/27/2017 mg tablet mg total) by mouth every 6 (six) hours as needed for severe pain for up to 5 days. Active Problems Problem Noted Date Diverticulitis 12/20/2017 Encounters Date Type Specialty Care Team Description 05/03/2018 Office Visit General Surgery Red Avendaño Diverticulitis of MD Eh large intestine without perforation or abscess without bleeding (Primary Dx) 01/18/2018 Office Visit General Surgery Red Avendaño MD (Primary Dx) 01/03/2018 Office Visit General Surgery Red Avendaño MD (Primary Dx) 12/20/2017 Anesthesia Event General Surgery Ashely Lenz, PETERSON 12/20/2017 Surgery General Surgery Red Avendaño ROBOT-ASSISTED MD Eh LAPARSCOPIC RECTOSIGMOID WITH DRAINGE AF ABSCESS AND TAKEDOWN OF COLOVESICULAR FISTULA 12/20/2017 - Hospital Encounter General Surgery Red Avendaño Cecal diverticulitis 12/22/2017 MD Eh 12/18/2017 Pre-Admit Testing Pre-Admission Red Avendaño Preop testing ( Primary Appointment Testing MD Eh Dx) 12/15/2017 Orders Only General Surgery Red Avendaño MD 12/14/2017 Office Visit General Surgery Red Avendaño Diverticulitis of MD Eh large intestine without perforation or abscess without bleeding (Primary Dx) 11/02/2017 Office Visit General Surgery Red Avendaño Diverticulitis kendra Stauffer MD large intestine without perforation or abscess without bleeding (Primary Dx) after 08/18/2017 Family History Medical History Relation Name Comments Diabetes Father Stroke Maternal Grandmother Relation Name Status Comments Father Maternal Grandmother Social History Tobacco Use Types Packs/Day Years Used Date Never Smoker Smokeless Tobacco: Never Used Tobacco Cessation: Counseling Given: No Alcohol Use Drinks/Week oz/Week Comments Yes 2 Standard drinks or equivalent 1.2 ocasionally Sex Assigned at Date Recorded Not on file Job Start Date Occupation Industry Not on file Not on file Not on file Travel History Travel Start Travel End No recent travel history available. Last Filed Vital Signs Vital Sign Reading Time Taken Blood Pressure 133/64 05/03/2018 4:45 PM CDT Pulse 73 05/03/2018 4:45 PM CDT Temperature 36.7 C (98 F) 05/03/2018 4:45 PM CDT Respiratory Rate 20 12/22/2017 11:24 AM [employer] Oxygen Saturation 99% 12/22/2017 11:24 AM [employer] Inhaled Oxygen Concentration - - Weight 77.2 kg (170 lb 2 oz) 12/20/2017 10:12 AM [employer] Height 170.2 cm (5' 7") 12/20/2017 10:12 AM [employer] Body Mass Index 26.65 12/20/2017 10:12 AM [employer] Plan of Treatment Health Maintenance Due Date Last Done Comments INFLUENZA VACCINE 09/06/2018 Procedures Procedure Name Priority Date/Time Associated Diagnosis Comments ESTIMATED GFR Routine 12/22/2017 4:00 Results for this AM [employer] procedure are in the results section. BASIC METABOLIC PANEL Routine 12/22/2017 4:00 Results for this AM [employer] procedure are in the results section. HC COMPLETE BLD COUNT Routine 12/22/2017 3:30 Results for this W/AUTO DIFF AM [employer] procedure are in the results section. HC COMPLETE BLD COUNT Routine 12/21/2017 4:30 Results for this W/AUTO DIFF AM [employer] procedure are in the results section. ESTIMATED GFR Routine 12/21/2017 4:00 Results for this AM [employer] procedure are in the results section. BASIC METABOLIC PANEL Routine 12/21/2017 4:00 Results for this AM [employer] procedure are in the results section. GRAM STAIN Timed 12/20/2017 5:36 Results for this PM [employer] procedure are in the results section. FUNGUS SMEAR Timed 12/20/2017 5:36 Results for this PM [employer] procedure are in the results section. AFB CULTURE Timed 12/20/2017 5:36 Cecal diverticulitis Results for this PM [employer] procedure are in the results section. AEROBIC CULTURE Timed 12/20/2017 5:36 Cecal diverticulitis Results for this PM [employer] procedure are in the results section. AFB STAIN Timed 12/20/2017 5:36 Cecal diverticulitis Results for this PM [employer] procedure are in the results section. FUNGUS CULTURE Timed 12/20/2017 5:36 Cecal diverticulitis Results for this PM [employer] procedure are in the results section. ANAEROBIC CULTURE Timed 12/20/2017 5:36 Cecal diverticulitis Results for this PM [employer] procedure are in the results section. AFB STAIN Timed 12/20/2017 5:04 Results for this PM [employer] procedure are in the results section. FUNGUS SMEAR Timed 12/20/2017 5:04 Results for this PM [employer] procedure are in the results section. GRAM STAIN Timed 12/20/2017 5:04 Results for this PM [employer] procedure are in the results section. AFB CULTURE Timed 12/20/2017 5:04 Cecal diverticulitis Results for this PM [employer] procedure are in the results section. AEROBIC CULTURE Timed 12/20/2017 5:04 Cecal diverticulitis Results for this PM [employer] procedure are in the results section. FUNGUS CULTURE Timed 12/20/2017 5:04 Cecal diverticulitis Results for this PM [employer]ATE procedure are in the results section. ANAEROBIC CULTURE Timed 12/20/2017 5:04 Cecal diverticulitis Results for this PM [employer] procedure are in the results section. WI AN ELECTIVE Routine 12/20/2017 3:47 ENDOTRACHEAL AIRWAY PM [employer] Procedure Note - Veronica Bishop CRNA - 12/20/2017 3:47 PM [employer]ATE ANESTHESIA INTUBATION Date/Time: 12/20/2017 2:59 PM Performed by: Veronica Bishop CRNA Authorized by: Anant Calderon MD Location: OR Urgency: Elective Difficult Airway: No Resident/SMOKEHOUSE WORKER/AA: Veronica Bishop CRNA Performed by: resident/SMOKEHOUSE WORKER/AA Preoxygenated with 100% O2: Yes Mask Ventilation: Easy mask Final Airway Type: Endotracheal airway Final Endotracheal Airway: ETT Cuffed: Yes Technique Used: Direct laryngoscopy Devices/Methods Used in Placement: Intubating stylet Insertion Site: Oral Blade Type: Mackenzie Laryngoscope Blade/Videolaryngoscope Blade Size: 2 ETT Size (mm): 8.0 Cuff at minimum occlusion pressure: Yes Measured from: Lips ETT to Lips (cm): 23 Placement Verified by: CO2 detection and equal breath sounds Laryngoscopic view: Grade I - full view of glottis Rapid Sequence Induction (RSI): No Modified RSI: No Number of Attempts at Approach: 1 Eyes taped immediately after LOC. Atraumatic DL/Intubation. No apparent change to oropharynx/dentition/lips RESECTION, COLON, LOW ANTERIOR, 12/20/2017 2:00 PM [employer]ATE Cecal diverticulitis LAPAROSCOPIC, ROBOT-ASSISTED Case Notes XI Special Needs XI SURGICAL PATHOLOGY Routine 12/20/2017 8:27 AM Results for this REQUEST [employer] procedure are in the results section. ESTIMATED GFR Routine 12/18/2017 10:10 AM Results for this [employer] procedure are in the results section. TYPE AND SCREEN Routine 12/18/2017 10:10 AM Preop testing Results for this [employer] procedure are in the results section. BASIC METABOLIC PANEL Routine 12/18/2017 10:10 AM Preop testing Results for this [employer] procedure are in the results section. HC COMPLETE BLD COUNT Routine 12/18/2017 10:10 AM Preop testing Results for this W/AUTO DIFF [employer] procedure are in the results section. after 08/18/2017 Results Estimated GFR (12/22/2017 4:00 AM [employer]ER [employer]IATE)Only the most recent of3 resultswithin the time period is included. Estimated GFR >=90 mL/min/1.73 DOTY JEWISH Comment: m2 HOSPITAL CatergoryUnitsInterpretation G1 >=90 Normal or high G2 60-89Mildly decreased [id number] to moderately decreased R4w43-31Tdrxsftjiv to severely decreased G4 15-29Severely decreased G5 <15Kidney failure The eGFR was calculated using the Chronic Kidney Disease Epidemiology Collaboration (CKD-EPI) equation. Interpretation is based on recommendations of the National Kidney Foundation-Kidney Disease Outcomes Quality Initiative (NKF-KDOQI) published in 2014. Specimen Plasma specimen Performing Organization Address City/[facility]/[employer] Phone Number [facility] DEPARTMENT OF PATHOLOGY AND [address] [place] [address] Basic metabolic panel (12/22/2017 4:00 AM SE[employer] C[employer]ER SERVICE ASSOCIATE)Only the most recent of3 resultswithin the time period is included. Sodium 139 135 - 148 mEq/L [facility] Potassium 3.9 3.5 - 5.0 mEq/L [facility] Chloride 101 98 - 112 mEq/L [facility] CO2 25 24 - 31 mEq/L [facility] Anion gap 13@ANIO 7 - 15 mEq/L [facility] BUN 9 6 - 20 mg/dL [facility] Creatinine 0.81 0.70 - 1.20 mg/dL [facility] Glucose 107 (H) 65 - 99 mg/dL [facility] Calcium 9.1 8.3 - 10.2 mg/dL [facility] Specimen Plasma specimen Performing Organization Address City/[facility]/[employer] Phone Number [facility] DEPARTMENT OF PATHOLOGY AND [address] [place] [address] CBC with platelet and differential (12/22/2017 3:30 AM [employer] ASS[employer]IATE)Only the most recent of3 resultswithin the time period is included. WBC 10.84 4.50 - 11.00 [facility] RBC 3.71 (L) 4.40 - 6.00 [facility] HGB 10.9 (L) 14.0 - 18.0 [facility] g/dL [facility] HCT 32.9 (L) 41.0 - 51.0 % [facility] MCV 88.7 82.0 - 100.0 [facility] MCH 29.4 27.0 - 34.0 pg [facility] MCHC 33.1 31.0 - 37.0 [facility] g/dL [facility] RDW - SD 40.7 37.0 - 55.0 fL [facility] MPV 10.8 8.8 - 13.2 fL [facility] Platelet count 181 150 - 400 k/uL [facility] Nucleated RBC 0.00 /100 WBC [facility] Neutrophils 65.8 39.0 - 69.0 % [facility] Lymphocytes 24.9 (L) 25.0 - 45.0 % [facility] Monocytes 8.2 0.0 - 10.0 % [facility] Eosinophils 0.5 0.0 - 5.0 % [facility] Basophils 0.3 0.0 - 1.0 % [facility] Immature granulocytes 0.3Comment: 0.0 - 1.0 % [facility] "[facility] granulocytes" (promyelocytes , myelocytes, metamyelocytes ) Specimen Blood Performing Organization Address [facility] Phone Number [facility] DEPARTMENT OF PATHOLOGY AND [address] [place] [phone] Fungus smear (12/20/2017 5:36 PM [employer]ER SERVICE ASSOCIATE)Only the most recent of2 resultswithin the time period is included. Fungus smear No fungi observed. SOREN LEE Comment: HOSPITAL Specimen Information Specimen Source: Abscess Specimen Site: PARACOLONIC ABSCESS Specimen Abscess Performing Organization Address [facility] Phone Number [facility] DEPARTMENT OF PATHOLOGY AND [address] [place] [phone] AFB culture (12/20/2017 5:36 PM SE[employer] C[employer]ER SERVICE ASSOCIATE)Only the most recent of2 resultswithin the time period is included. AFB culture No growth after 6 weeks of incubation. SOREN LEE isolate Comment: HOSPITAL Specimen Information Specimen Source: Abscess Specimen Site: PARACOLONIC ABSCESS Specimen Fluid - Colon Performing Organization Address City/[facility]/[employer] Phone Number [facility] DEPARTMENT OF PATHOLOGY AND [address] [place] [phone] Aerobic culture (12/20/2017 5:36 PM [employer] C[employer]ER SERVICE ASSOCIATE)Only the most recent of2 resultswithin the time period is included. Aerobic culture No growth after 2 days. [facility] isolate Comment: HOSPITAL Specimen Information Specimen Source: Abscess Specimen Site: PARACOLONIC ABSCESS Specimen Fluid - Colon Performing Organization Address City/[facility]/[employer] Phone Number [facility] DEPARTMENT OF PATHOLOGY AND [address] [place] [phone] [place] [phone] Gram stain (12/20/2017 5:36 PM [employer] C[employer]ER SERVICE ASSOCIATE)Only the most recent of2 resultswithin the time period is included. Gram stain isolate Many WBC's [facility] No organisms seen HOSPITAL Comment: Specimen Information Specimen Source: Abscess Specimen Site: PARACOLONIC ABSCESS Specimen Abscess Performing Organization Address [facility]/[employer] Phone Number [facility] DEPARTMENT OF PATHOLOGY AND [address] [place] [phone] [place] [phone] AFB stain (12/20/2017 5:36 PM SE[employer]ONAL CUSTOMER SERVICE ASSOCIATE)Only the most recent of2 resultswithin the time period is included. AFB stain No acid fast bacilli (AFB) seen. [facility] Comment: HOSPITAL Specimen Information Specimen Source: Abscess Specimen Site: PARACOLONIC ABSCESS Specimen Fluid - Colon Performing Organization Address [facility] Phone Number [facility] DEPARTMENT OF PATHOLOGY AND [address] [place] [phone] [place] [phone] Fungus culture (12/20/2017 5:36 PM SE[employer] CUST[employer]ER SERVICE ASSOCIATE)Only the most recent of2 resultswithin the time period is included. Fungus culture No growth after [address] [facility] isolate Comment: HOSPITAL Specimen Information Specimen Source: Abscess Specimen Site: PARACOLONIC ABSCESS Specimen Fluid - Colon Performing Organization Address City/[facility]/Zipcode Phone Number [facility] DEPARTMENT OF PATHOLOGY AND [address] [place] [phone] [place] [phone] Anaerobic culture (12/20/2017 5:36 PM SE[employer] C[employer]ER SERVICE ASSOCIATE)Only the most recent of2 resultswithin the time period is included. Anaerobic culture No anaerobic organisms isolated. [facility] isolate Comment: HOSPITAL Specimen Information Specimen Source: Abscess Specimen Site: PARACOLONIC ABSCESS Specimen Fluid - Colon Performing Organization Address City/State/Zipcode Phone Number [facility] DEPARTMENT OF PATHOLOGY AND [address] [place] [phone] [place] [phone] Surgical pathology request (12/20/2017 8:27 AM SE[employer]ONAL CUSTOMER SERVICE ASSOCIATE) [facility] DEPARTMENT OF PATHOLOGY AND GENOMIC MEDICINE Surgical pathology See link below [facility] DEPARTMENT OF report for PDF Lab PATHOLOGY AND Report GENOMIC MEDICINE Result status This is Final [facility] DEPARTMENT OF Report for PATHOLOGY AND [id number] GENOMIC MEDICINE Specimen Performing Organization Address City/State/Zipcode Phone Number [facility] DEPARTMENT OF PATHOLOGY AND [address] [place] [phone] GENOMIC MEDICINE Type and screen (12/18/2017 10:10 AM SE[employer] C[employer]ER SERVICE ASSOCIATE) ABO grouping O [facility] Rh type POS [facility] Antibody screen (gel) NEG [facility] Specimen Blood Performing Organization Address City/State/[employer] Phone Number [facility] DEPARTMENT OF PATHOLOGY AND [address] [place] [phone] GENOMIC MEDICINE [address] [id number] after 08/18/2017 Advance Directives Patient has advance care planning documents, and code status on file. For more information, please contact:[address] [address] Code Status Date Activated Date Inactivated Comments Full Code 12/20/2017 9:56 PM 12/22/2017 5:15 PM Code Status decision reached by: Patient
[2018-08-19 15:39] LABS: Absolute Lymphocytes (CBC) 1.5 K/uL (0.7-4.9); Basophils % 0.5 % (0-1.3); Eosinophils % 0.3 % (0-4.4); Hematocrit 47.6 % (39.6-49.0); Lymphocytes % 15.2 % (15.3-44.8); MPV 9.2 fL (7.6-11.3); RBC Red Blood Cell Count 5.49 M/uL (4.33-5.43)
--- NOTE | 2018-08-19 15:50 | RAD REPORT ---
EXAM DESCRIPTION: Gilberto Single View08/19/2018 3:44 pm CLINICAL HISTORY: Dysphagia COMPARISON: 2017 FINDINGS: The lungs appear clear of acute infiltrate. The heart is normal size IMPRESSION: No acute abnormalities displayed
[2018-08-19 15:56] LABS: ALT/SGPT 26 U/L (12-78); AST/SGOT 14 U/L (15-37); Albumin 4.7 g/dL (3.4-5.0); Alkaline Phosphatase 55 U/L (45-117); BUN Blood Urea Nitrogen 16 mg/dL (7-18); Bicarbonate 24 mmol/L (21-32); Bilirubin Direct 0.3 mg/dL (0-0.2); Bilirubin Total 1.4 mg/dL (0.2-1.0); Glucose Level 89 mg/dL (74-106); Potassium 3.4 mmol/L (3.5-5.1); Protein, Total 8.4 g/dL (6.4-8.2); Sodium Level 136 mmol/L (136-145)
--- NOTE | 2018-08-19 17:09 | RAD REPORT ---
EXAM DESCRIPTION: CT - Soft Tissue Neck W/Contr - 08/19/2018 4:44 pm CLINICAL HISTORY: Neck pain with dysphagia COMPARISON: None. TECHNIQUE: Computed axial tomography of the neck was obtained. 50 cc Isovue 300 was administered in travenously. Coronal and sagittal reconstruction was performed. All CT scans are performed using dose optimization technique as appropriate and may include automated exposure control or mA/KV adjustment according to patient size. FINDINGS: The pharynx, tongue base, larynx and subglottic trachea appear unremarkable The parotid, submandibular and thyroid glands appear unremarkable. No lymphadenopathy is seen Small mucus retention cyst right maxillary sinus. IMPRESSION: No acute abnormality is displayed
--- NOTE | 2018-08-19 17:22 | ER ---
Nurse's Notes [facility] Name: Bruno Mosqueda III Age: 23 yrs Sex: Male : 1995 Arrival Date: 08/19/2018 Time: 14:58 Bed 6 Private MD: Diagnosis: Dysphagia, unspecified Presentation: 08/19 15:04 Presenting complaint: Patient states: I have been feeling bad for the last week and la1 when I eat I feel like the food is getting stuck. I see Dr. Sin and saw him on and he said he was going to schedule a scope but couldn't get me in till september and I feel worse. Transition of care: patient was not received from another setting of care. Onset of symptoms was August 19, 2018. Risk Assessment: Do you want to hurt yourself or someone else? Patient reports no desire to harm self or others. Initial Sepsis Screen: Does the patient meet any 2 criteria? No. Patient's initial sepsis screen is negative. Does the patient have a suspected source of infection? No. Patient's initial sepsis screen is negative. Care prior to arrival: None. 15:04 Method Of Arrival: Ambulatory la1 15:04 Acuity: DELMAR 3 la1 Historical: - Allergies: 15:03 Flagyl; la1 - PMHx: 15:03 GERD; la1 - Immunization history:: Adult Immunizations up to date. - Social history:: Smoking status: Patient/guardian denies using tobacco. - Ebola Screening: : No symptoms or risks identified at this time. Screenin:24 Abuse screen: Denies threats or abuse. Denies injuries from another. Nutritional sv screening: No deficits noted. Tuberculosis screening: No symptoms or risk factors identified. Fall Risk None identified. 15:32 Patient has been NPO before screening. The patient is alert, able to follow commands. sv The patient does not exhibit slurred or garbled speech The patient is not exhibiting difficulty speaking. The patient does not exhibit difficulty understanding words. The patient is able to swallow own secretions with no drooling or need for suction. Patient tolerated one teaspoon of water. No drooling, immediate coughing, gurgling, or clearing of the throat was noted. The patient tolerated 90mL of water. No drooling, immediate coughing, gurgling, or clearing of the throat was noted. The patient passed the bedside swallow screening. Oral medications may be given as ordered. Contact Physician for further diet orders. Provider notified of bedside swallow screening results: Sree FERNÁNDEZ. Assessment: 15:30 General: Appears in no apparent distress. comfortable, well groomed, well developed, sv Behavior is calm, cooperative, appropriate for age. Pain: Denies pain. Neuro: Level of Consciousness is awake, alert, obeys commands, Oriented to person, place, time, situation, Moves all extremities. Full function Gait is steady, Speech is normal. Respiratory: Airway is patent Trachea midline Respiratory effort is even, unlabored, Respiratory pattern is regular, symmetrical. EENT: Reports difficulty swallowing. Derm: Skin is pink, warm \T\ dry. 15:58 Reassessment: Patient appears in no apparent distress at this time. No changes from sv previously documented assessment. Patient and/or family updated on plan of care and expected duration. Pain level reassessed. Patient is alert, oriented x 3, equal unlabored respirations, skin warm/dry/pink. 17:34 Reassessment: Patient appears in no apparent distress at this time. No changes from sv previously documented assessment. Patient and/or family updated on plan of care and expected duration. Pain level reassessed. Patient is alert, oriented x 3, equal unlabored respirations, skin warm/dry/pink. Vital Signs: 15:03 BP 177 / 104; Pulse 73; Resp 16; Temp 98.9(TE); Pulse Ox 100% on R/A; Weight 92.08 kg; la1 Height 5 ft. 7 in. (170.18 cm); 15:58 BP 138 / 106; Pulse 97 MON; Resp 19; Pulse Ox 100% on R/A; sv 17:01 BP 141 / 91; Pulse 83; Resp 19; Pulse Ox 100% ; sv 15:03 Body Mass Index 31.79 (92.08 kg, 170.18 cm) la1 15:58 Sinus Rhythm sv ED Course: 14:58 Patient arrived in ED. as 15:03 Arm band placed on left wrist. la1 15:06 Triage completed. la1 15:11 Sree Frias PA is PHCP. cp 15:11 Elias Alaniz MD is Attending Physician. cp 15:24 Jimmy, Glo, RN is Primary Nurse. sv 15:24 Patient has correct armband on for positive identification. Bed in low position. Call sv light in reach. Door closed. Head of bed elevated. 15:30 Initial lab(s) drawn, by me, sent to lab. Strep swab sent to lab. Inserted saline lock: sv 20 gauge in right antecubital area, using aseptic technique. Blood collected. Flushed right antecubital with 5 ml normal saline. 15:43 XRAY Chest (1 view) In Process Unspecified. EDMS 15:59 Throat Culture Sent. sv 16:43 CT Soft Tissue Neck W/contr In Process Unspecified. EDMS 17:02 Awaiting radiology results. Awaiting re-evaluation by ER provider. sv 17:21 Analy Sin MD is Referral Physician. cp 17:34 No provider procedures requiring assistance completed. IV discontinued, intact, sv bleeding controlled, No redness/swelling at site. Pressure dressing applied. Administered Medications: 17:21 CANCELLED (Physician Discretion): Potassium Effervescent Tablet 25 mEq PO once; sv dissolve in 4 ounces of water or juice 17:33 CANCELLED (Physician Discretion): Potassium Chloride 20 mEq PO once sv 17:33 Drug: Potassium Effervescent Tablet 25 mEq Route: PO; sv 17:34 Follow up: Response: Medication administered at discharge. sv Outcome: 17:21 Discharge ordered by . cp 17:34 Discharged to home ambulatory, with family. sv 17:34 Condition: stable 17:34 Discharge instructions given to patient, family, Instructed on discharge instructions, follow up and referral plans. medication usage, Demonstrated understanding of instructions, follow-up care, medications, Prescriptions given X 2. 17:34 Patient left the ED. sv Signatures: Dispatcher [employer] EDMT Glo Marquez, RN RN Juliette Velez Lee RN RN la1 Sree Frias, PRADEEP PA cp
--- NOTE | 2018-08-19 17:22 | EDPHYS ---
Physician Documentation [facility] Name: Bruno Mosqueda III Age: 23 yrs Sex: Male : 1995 Arrival Date: 08/19/2018 Time: 14:58 Bed 6 Private MD: ED Physician Elias Alaniz HPI: 08/19 15:38 This 23 yrs old Male presents to ER via Ambulatory with complaints of cp Difficulty Swallowing. 15:38 The patient presents with dysphagia, of both solids and liquids. cp 15:38 Onset: The symptoms/episode began/occurred 1 week(s) ago. cp 15:38 Severity of symptoms: in the emergency department the symptoms are unchanged, despite cp home interventions. Associated signs and symptoms: Pertinent negatives earache, fever, sore throat, vomiting, weight loss. The patient has been recently seen by a physician: Dr. Howell 3 day(s) ago, with similar presenting complaints, wants to schedule EGD in September. Historical: - Allergies: 15:03 Flagyl; la1 - PMHx: 15:03 GERD; la1 - Immunization history:: Adult Immunizations up to date. - Social history:: Smoking status: Patient/guardian denies using tobacco. - Ebola Screening: : No symptoms or risks identified at this time. ROS: 15:40 Constitutional: Negative for body aches, chills, fever, poor PO intake, weight loss. cp 15:40 Eyes: Negative for injury, pain, redness, and discharge. cp 15:40 ENT: Positive for difficulty swallowing, Negative for drainage from ear(s), ear pain, sore throat, difficulty handling secretions. 15:40 Neck: Negative for pain with movement, pain at rest, stiffness. 15:40 Cardiovascular: Negative for chest pain, edema, palpitations. 15:40 Respiratory: Negative for cough, shortness of breath, wheezing. 15:40 Abdomen/GI: Negative for abdominal pain, nausea, vomiting, and diarrhea, black/tarry stool, rectal bleeding. 15:40 Back: Negative for pain at rest, pain with movement. 15:40 : Negative for urinary symptoms. 15:40 Skin: Negative for cellulitis, rash. 15:40 Neuro: Negative for altered mental status, dizziness, headache, weakness. 15:40 All other systems are negative. Exam: 15:42 ECG was reviewed by the Attending Physician. cp 15:50 Constitutional: The patient appears in no acute distress, alert, awake, cp non-diaphoretic, non-toxic, well developed, well nourished. 15:50 Head/Face: Normocephalic, atraumatic. cp 15:50 Eyes: Periorbital structures: appear normal, Conjunctiva: normal, no exudate, no injection, Sclera: no appreciated abnormality, Lids and lashes: appear normal, bilaterally. 15:50 ENT: External ear(s): are unremarkable, Ear canal(s): are normal, clear, TM's: bulging, is not appreciated, bilaterally, erythema, is not appreciated, bilaterally, Nose: is normal, Mouth: Lips: moist, Oral mucosa: pink and intact, moist, Tongue: is normal, drooling, is not appreciated, Posterior pharynx: is normal, airway is patent, no exudate, Tonsils: no enlargement, no exudate, Uvula: midline, swelling, is not appreciated, erythema, that is mild, exudate, is not appreciated, Voice: is normal. 15:50 Neck: ROM/movement: is normal, is supple, without pain, no range of motions limitations, no nuchal rigidity, Lymph nodes: no appreciated lymphadenopathy. 15:50 Chest/axilla: Inspection: normal, Palpation: is normal, no crepitus, no tenderness. 15:50 Cardiovascular: Rate: normal, Rhythm: regular, Heart sounds: murmur, not appreciated, JVD: is not appreciated. 15:50 Respiratory: the patient does not display signs of respiratory distress, Respirations: normal, no use of accessory muscles, no retractions, no splinting, no tachypnea, labored breathing, is not present, Breath sounds: are clear throughout, no decreased breath sounds, no stridor, no wheezing. 15:50 Abdomen/GI: Exam negative for discomfort, distension, guarding, Inspection: abdomen appears normal. 15:50 Back: pain, is absent, ROM is normal. 15:50 Skin: no rash present. 15:50 Neuro: Orientation: to person, place \T\ time. Mentation: is normal, Motor: moves all fours, strength is normal. Vital Signs: 15:03 BP 177 / 104; Pulse 73; Resp 16; Temp 98.9(TE); Pulse Ox 100% on R/A; Weight 92.08 kg; la1 Height 5 ft. 7 in. (170.18 cm); 15:58 BP 138 / 106; Pulse 97 MON; Resp 19; Pulse Ox 100% on R/A; sv 17:01 BP 141 / 91; Pulse 83; Resp 19; Pulse Ox 100% ; sv 15:03 Body Mass Index 31.79 (92.08 kg, 170.18 cm) la1 15:58 Sinus Rhythm sv MDM: 15:14 Patient medically screened. cp 16:00 Differential diagnosis: epiglottitis, del-espinal virus, gastroesophageal reflux cp disease, peritonsillar abscess retropharyngeal abcess. 17:20 Data reviewed: vital signs, nurses notes, lab test result(s), EKG, radiologic studies, cp CT scan, plain films. 17:20 Test interpretation: by ED physician or midlevel provider: ECG, plain radiologic cp studies. Counseling: I had a detailed discussion with the patient and/or guardian regarding: the historical points, exam findings, and any diagnostic results supporting the discharge/admit diagnosis, lab results, radiology results, the need for outpatient follow up, a family practitioner, a shear scrapman, to return to the emergency department if symptoms worsen or persist or if there are any questions or concerns that arise at home. Response to treatment: There is no appreciated change of the patient's symptoms at this time. 08/19 15:24 Order name: Strep cp 08/19 15:24 Order name: [place] Screen Profile; Complete Time: 17:13 cp 08/19 15:24 Order name: Basic Metabolic Panel; Complete Time: 16:03 cp 08/19 15:24 Order name: CBC with Diff; Complete Time: 16:03 cp 08/19 15:24 Order name: LFT's; Complete Time: 16:03 cp 08/19 15:52 Order name: Throat Culture EDMS 08/19 15:24 Order name: XRAY Chest (1 view); Complete Time: 16:03 cp 08/19 15:24 Order name: EKG; Complete Time: 15:26 cp 08/19 15:24 Order name: Cardiac monitoring; Complete Time: 15:33 cp 08/19 15:24 Order name: EKG - Nurse/Tech; Complete Time: 15:33 cp 08/19 16:04 Order name: CT Soft Tissue Neck W/contr; Complete Time: 17:13 cp 08/19 15:24 Order name: IV Saline Lock; Complete Time: 15:33 08/19 15:24 Order name: Labs collected and sent; Complete Time: 15:33 cp 08/19 15:24 Order name: O2 Per Protocol; Complete Time: 15:33 cp 08/19 15:24 Order name: O2 Sat Monitoring; Complete Time: 15:33 cp 08/19 15:24 Order name: Swallow Screen; Complete Time: 15:32 cp EC:42 Rate is 64 beats/min. Rhythm is regular. ID interval is normal. QRS interval is normal. cp QT interval is normal. Interpreted by me. Reviewed by me. Administered Medications: 17:21 CANCELLED (Physician Discretion): Potassium Effervescent Tablet 25 mEq PO once; sv dissolve in 4 ounces of water or juice 17:33 CANCELLED (Physician Discretion): Potassium Chloride 20 mEq PO once sv 17:33 Drug: Potassium Effervescent Tablet 25 mEq Route: PO; sv 17:34 Follow up: Response: Medication administered at discharge. sv Disposition: 17:43 Co-signature as Attending Physician, Elias Alaniz MD. rn Disposition: 08/19/18 17:21 Discharged to Home. Impression: Dysphagia, unspecified. - Condition is Stable. - Discharge Instructions: Dysphagia, Upper Endoscopy, Barium Swallow. - Prescriptions for Dexilant 30 mg Oral capsule,biphase delayed releas - take 2 capsule by ORAL route once daily; 60 capsule. Zofran 4 mg Oral Tablet - take 1 tablet by ORAL route every 12 hours As needed; 20 tablet. - Medication Reconciliation Form, Thank You Letter, Antibiotic Education, Prescription Opioid Use form. - Follow up: Analy Sin MD; When: as scheduled; Reason: Recheck today's complaints. Signatures: Dispatcher [employer] Glo Hammer RN RN sv Nieto, Roman, MD MD rn Attema, Lee, RN RN la1 Sree Frias PA PA cp Corrections: (The following items were deleted from the chart) 17:21 17:14 Potassium Effervescent Tablet 25 mEq PO once; dissolve in 4 ounces of water or sv juice ordered. cp 17:33 17:21 Potassium Chloride Liquid 20 mEq PO once ordered. sv sv 17:33 17:33 Potassium Chloride Liquid 20 mEq PO once ordered. sv sv 17:34 17:21 08/19/2018 17:21 Discharged to Home. Impression: Dysphagia, unspecified. sv Condition is Stable. Forms are Medication Reconciliation Form, Thank You Letter, Antibiotic Education, Prescription Opioid Use. Follow up: Analy Sin; When: as scheduled; Reason: Recheck today's complaints. cp
[2018-08-19] MEDS ORDERED: POTASSIUM 25 MEQ EFFERV TAB ONE (17:46)
--- NOTE | 2018-08-19 20:08 | EKG ---
Test Date: 2018-08-19 Test Time: 15:35:27 Production Control Manager: JEFF MEASUREMENT RESULTS: Intervals: Rate: 64 IA: 142 QRSD: 96 QT: 396 QTc: 408 [place]: P: 59 IA: 142 QRS: 14 T: 25 INTERPRETIVE STATEMENTS: Normal sinus rhythm with sinus arrhythmia Normal ECG Compared to ECG 09/18/2008 15:30:24 No significant changes Electronically Signed On 08-19-18 20:08:08 CDT by Ermias Merritt
== END 2018-08-19 17:34 | disposition home or self-care (01) ==
LOC: ER 14:57
DX: R13.10 Dysphagia, unspecified (principal)
CPT/HCPCS: 36415; 70491; 71045; 80048; 80076; 85025; 86308; 87070; 87081; 93005; 99284; Q9967